=== PATIENT | male | born 1960 | race African-American/Black ===

== ENCOUNTER 2019-05-02 01:26 | Emergency (ER) | payer OTHER ==
[~2019-05-02] VITALS: Ht 172.7 cm; Wt 96.0 kg
[~2019-05-02 01:26] MED LIST: INSULIN; UNK MED
[2019-05-02] MEDS ORDERED: LIDOCAINE 1%/EPI 1:100,000 10 ML VIAL IJ ONE (02:45)
[2019-05-02] MEDS ORDERED: BACITRACIN ZINC OINT UDPKT TOP ONE (02:45)
[2019-05-02] MEDS ORDERED: LIDOCAINE HCL/EPINEPHRINE 1%-EPI 1:100,000 20 ML VIAL INFIL NR (03:00)
[2019-05-02 03:55] VITALS: BP 165/80
== END 2019-05-02 04:01 | disposition home or self-care (01) ==
LOC: ER 01:26
DX: S21.212A Laceration without foreign body of left back wall of thorax without penetration into thoracic cavity, initial encounter (principal); S27.898A Other injury of other specified intrathoracic organs, initial encounter; X58.XXXA Exposure to other specified factors, initial encounter; Y93.89 Activity, other specified; Y92.89 Other specified places as the place of occurrence of the external cause; Y99.8 Other external cause status; E11.9 Type 2 diabetes mellitus without complications; I10 Essential (primary) hypertension
CPT/HCPCS: 12002; 82962; 99283; J3490